=== PATIENT | male | born 1960 | race Caucasian/White ===

== ENCOUNTER → 2023-05-16 13:15 | Outpatient (CLI) | payer MEDICARE, SELFPAY ==
--- NOTE | ~2023-05-16 | MR_ITS ---
MRI of the right shoulder Technique: Axial proton-density fat-sat images, coronal proton density fat-sat and T2 fat-sat images, and sagittal T1-weighted and T2 fat-sat images were acquired. Clinical History: Pain Findings: There is mild AC joint degenerative change. Coracoclavicular, coracoacromial, coracohumeral ligaments appear intact. There are complete, full-thickness tears involving the entirety of the supraspinatus and infraspinatu s tendons. Supraspinatus and is more retracted than the infraspinatus. Fluid-filled gap measures appr oximately 4.1 x 3.5 cm in extent. Subscapularis tendon is intact, with moderate tendinosis. Tendon of long head of the biceps is intact. There are degenerative tearing of the superior labrum with anterior and posterior extension. There is mild thickening and increased signal of the inferior glenohumeral ligament. There is a small glenohumeral joint effusion, with fluid passing through the rotator cuff defect into the subacromial /subdeltoid bursa. There is edematous change of the infraspinatus muscle belly, probable partial tear ing of the muscle near the myotendinous junction region. There is probable atrophy of the teres minor muscle belly. Impression: Complete, full-thickness tears of the supraspinatus and infraspinatus tendons, as detailed above. Degenerative SLAP tear of the labrum. Probable partial tearing of the infraspinatus muscle belly near the myotendinous junction region. Possible adhesive capsulitis. Fatty atrophy of the teres minor muscle belly. Reviewed, dictated and finalized at location . L [employer] Impression: Complete, full-thickness tears of the supraspinatus and infraspinatus tendons, as detailed above. Degenerative SLAP tear of the labrum. Probable partial tearing of the infraspinatus muscle belly near the myotendinou s junction region. Possible adhesive capsulitis. Fatty atrophy of the teres minor muscle belly.
== END ==
PROVIDERS: PCP Nurse Practitioner Family; Visit Provider Nurse Practitioner Family
DX: M75.121 Complete rotator cuff tear or rupture of right shoulder, not specified as traumatic (principal); S43.431A Superior glenoid labrum lesion of right shoulder, initial encounter; M62.511 Muscle wasting and atrophy, not elsewhere classified, right shoulder
CPT/HCPCS: 73221

== ENCOUNTER 2023-06-20 03:19 | Day surgery (SDC) | payer MEDICARE, SELFPAY ==
[2023-06-11 10:10] VITALS: BMI 35.1
--- NOTE | 2023-06-11 10:53 | PC.NURSE ---
Report to the Outpatient Waiting Room, entrance under the green pavilion located off [facility], at 0600 on 06-20-23. Planned Procedure Time: 0730. Time changes happen often and if your time is changed the preop area will call you the afternoon before. - You and your visitor will be asked to self-screen and do not enter if you have any COVID symptoms. - A mask is optional within the hospital at this time. Patients may have clear liquids (water, carbonated beverages, clear teas, apple juice) until 3 hours prior to surgery with a maximum of 20 ounces. 0430 - No food from midnight until time of surgery - Infants may have breast milk until 4 hours before surgery, formula 6 hours prior to surgery. - Children will be allowed to drink immediately following surgery. If applicable, please bring a bottle or sippy cup to assist with drinking. Juice, water, soda, and popsicles are readily available. For infants on formula, please bring formula the day of surgery. Pacifiers are allowed. Take the following medications with a SIP of water the morning of surgery: None DO NOT STOP ANY OF YOUR OTHER PRESCRIPTION MEDICATIONS PRIOR TO SURGERY ?EXCEPT THE FOLLOWING Medications to discontinue per physician: aspirin Date to take last dose: Per Dr. Calixto Please no make-up, nail surinamese, hairspray, perfume, deodorant, or body powder the day of surgery. No jewelry (including any body piercings) or valuables the day of surgery, leave them at home. Please take a shower or bath the night before, or the morning of, surgery with an antibacterial soap. Wear comfortable, loose fitting clothing. Children are encouraged to wear pajamas. - Jewelry must be removed prior to entering the operating room. Rings and piercings that are not removed may be cut off. - The hospital will not accept responsibility for valuables. - Please leave all valuables, including medications, at home the day of surgery. If you are going home after surgery, a licensed driver/refuse collector must drive you home. - NO public transportation without another adult if you receive anesthesia. - We recommend that an adult stay with you for 24 hours following discharge. - We also recommend that you do not drive, make important decision, drink alcoholic beverages, or take any drugs that were not prescribed by your health care provider for at least 24 hours after your discharge time. For Pediatric surgeries, we recommend two adults accompany the child home. Follow any additional instructions given to you from your surgeon. If you or anyone in your household have experienced Covid symptoms in the past week, please notify your surgeon or the nurse liaison at the phone number below for possible testing. Telephone instructions given to Rodo Oliveira and asked if any additional questions and then verbalized understanding. Patient advised to call surgeon office or pre surgery nurse liaison [phone] if any additional questions.
--- NOTE | 2023-06-19 13:19 | WPDANESEPPF ---
Anes - Initial Pre Proc Eval Procedure: Operation Date: 06/20/23 07:30 Proposed Procedures p Excisional Biopsy of Upper Back Times Three - Brigette Calixto MD Date/Time: 06/19/23 13:19 Surgeon: Brigette Calixto MD Pre Op Diagnosis: Sebaceous Cyst Upper Back x3 Patient Data Age: 62 Gender: M Height: 1.78 m Weight: 111.13 kg Allergies Allergy/AdvReac Type Severity Reaction Status Date / Time latex Allergy Mild Rash Verified 06/11/23 10:06 peroxide Allergy Mild Swelling Uncoded 06/11/23 10:06 Home Medications Medication Instructions Recorded Confirmed Type aspirin 81 mg tablet,delayed 81 mg PO DAILY 05/28/23 06/11/23 History release dapagliflozin propanediol 10 mg 10 mg PO DAILY 05/28/23 06/11/23 History tablet (Farxiga) insulin degludec 100 30 unit subcut DAILY 05/28/23 06/11/23 History unit-liraglutide 3.6 mg/mL(3 mL) subcutaneous pen (Xultophy 100/3.6) Patient hx anesthesia problems: none Family hx anesthesia problems: none Results Review: All pre-operative results and documents have been reviewed as part of the pre-operative evaluation. [facility] Past Medical History Medical History (Updated 06/19/23 @ 13:19 by Jamal Ramires DO) Diabetes type 2, controlled GERD (gastroesophageal reflux disease) History of heart attack Right rotator cuff tear Right shoulder pain Rotator cuff tendonitis Surgical History Surgical History History of appendectomy History of spinal fusion Family History Family History Unknown Heart disease Diabetes mellitus High cholesterol Arthritis Social History Social History Smoking packs per day: 0.5 Smoking cigarettes per day: 10.0 Years smoked: 2 Smoking pack-years: 1.00 Smoking status: Former smoker Tobacco type: cigarettes Second hand tobacco smoke exposure: No Additional smoking assessment comments: smoked as teenager Alcohol intake: never Substance use: never Substance use type: does not use Living arrangements: with family Spiritual care concerns: No Anes - Eval Final PreProcedure Day of Procedure 06/19/23 13:19 Patient weight: obese Heart: regular rate and rhythm Lungs: clear to auscultation Airway: Mallampati scale class II Neurological: alert and oriented Last oral intake: >/= 8 hours ASA classification: III Emergent: no Anesthetic plan: proceed Anesthesia type and monitoring: general GIVS and standard monitoring Results Review: All pre-operative results and documents have been reviewed as part of the pre-operative evaluation. Informed Consent: The patient's anesthetic plan and its attendant risks and benefits were discussed with the patient/family/POA. Questions were solicited and answers provided to the satisfaction of the patient/family/POA.
[2023-06-20 06:43] LABS: Glucose Point of Care 167 mg/dl (65-105)
[2023-06-20 07:00] VITALS: BP 162/91; PULSE 81; RESP 14; TEMP 36.4; O2SAT 99
[2023-06-20] MEDS: LACTATED RINGERS 1,000 ML 30 ML IV CONT (07:00)
--- NOTE | 2023-06-20 07:30 | WPDHPUPDATE1 ---
History and Physical Update Update Date/Time: 06/20/23 07:30 History and Physical has been reviewed, including an updated exam of the patient. There are NO changes in the patient's condition. Risks, benefits, and alternatives have been discussed and questions answered. Patient agrees to proceed with procedure.
[2023-06-20] MEDS: ceFAZolin 2 GM/D5W 50 ML 2 GM/50 ML BAG IVPB (07:38)
[2023-06-20] MEDS: KETOROLAC 15 MG/ML VIAL (*BKC) IV PUSH (07:58)
[2023-06-20] MEDS: BUPIVACAINE/EPINEPHRINE 0.5% 30 ML VIAL INFILTRATE (07:58)
--- NOTE | 2023-06-20 08:26 | W.PM.PROC2 ---
Procedure Note - Detailed Date of Procedure 06/20/23 Pre-op Diagnosis upper back mass x 2, upper mid back and right upper back Post-op Diagnosis Same Procedure Performed excisional biopsy upper back mass x2 Surgeon Brigette Calixto MD Anesthesia MAC and Local Indications 62-year-old male presenting to the office with upper back 2. Patient reports areas are growing in size and tender to palpation. Findings Upper back mass x2, mid upper back measuring 2.5 x 1.5 cm, right upper back measuring 2.5 x 1 cm Description of Procedure The patient was taken to the operating room placed in the lateral position. After adequate induction of MAC anesthesia, the patient was prepped and draped in the normal sterile. A time-out was done to verify the patient's identity, as well as the procedure being performed. I began by localizing the areas in and around these masses in the upper back. Beginning with the midback mass, I made an elliptical incision to encompass the overlying dermis of the mass. This incision was carried down through the dermis and into the subcutaneous tissue. A hard cystic mass was encountered within the subcutaneous tissue. This area was excised in full again encompassing the overlying dermis. The excision measured 2.5 x 1.5 cm. This was sent for pathology. I then gained hemostasis with the Bovie cautery. The subcutaneous tissue was closed with 3-0 Vicryl suture. The skin was closed with 4-0 Monocryl subcuticular suture. I then excised the mass in the right upper back. Again an elliptical incision was made to encompass the area of the mass. This was carried to the subcutaneous tissue where the mass was located. Again a full excision was done. The excision measured 2.5 x 1 cm. This will also be sent to pathology for further review. Hemostasis was gained with the Bovie cautery. The subcutaneous tissue was closed with 3-0 Vicryl suture. The skin was closed with 4-0 Monocryl subcuticular suture. Dermabond was placed on both excision sites. The patient tolerated the procedure well and was alert and awake in the operating room postoperatively. He will be sent to the recovery room in stable condition. Estimated Blood Loss 5 Drains No Packing No Pathology Yes Complications No immediate complications Condition Stable Disposition PACU [facility] Billing Surgery - Charge Forward: Surgery Billing
[2023-06-20 08:32] VITALS: BP 117/71; PULSE 72; RESP 16; O2SAT 97
[2023-06-20 09:00] VITALS: BP 126/80; PULSE 62; RESP 16
== END 2023-06-20 09:20 | disposition home or self-care (01) ==
PROVIDERS: PCP Internal Medicine; Visit Provider Surgery
PROC: (CPT 21931; principal; 2023-06-20 07:30)
DX: D17.1 Benign lipomatous neoplasm of skin and subcutaneous tissue of trunk (principal); L72.0 Epidermal cyst; E11.9 Type 2 diabetes mellitus without complications; I25.2 Old myocardial infarction; Z98.1 Arthrodesis status; Z87.891 Personal history of nicotine dependence; E66.9 Obesity, unspecified; Z68.36 Body mass index [BMI] 36.0-36.9, adult; Z79.4 Long term (current) use of insulin; Z79.84 Long term (current) use of oral hypoglycemic drugs; Z79.82 Long term (current) use of aspirin
CPT/HCPCS: 21931; 11403; 12031; 82948; 88304; J0690; J1100; J1885; J2250; J2405; J2704; J3010; J7120

== ENCOUNTER 2024-01-06 13:19 | Emergency (ER) | payer MEDICARE, SELFPAY ==
--- NOTE | ~2024-01-06 | XR_ITS ---
XR ankle LT min 3V Ordering provider: Demetra Salazar NP History: . achilles pain . Comparison: None. FINDINGS: BONES: No acute fracture or dislocation. Bony fragment seen near to the base of the fifth metatarsal bone most likely old fracture. Calcaneal spur. JOINT SPACES: The ankle mortise is normal. SOFT TISSUES: Soft tissue swelling over the lateral malleolus. Ossification of the insertion of the t endo Achilles. Calcifications also seen in the distal tendo Achilles. Soft tissue swelling also seen in the area. IMPRESSION: No definite acute osseous abnormality left ankle. Reviewed, dictated and finalized at location A.
[2024-01-06 13:30] VITALS: BP 151/80; PULSE 73; RESP 20; TEMP 36.7; O2SAT 98
--- NOTE | 2024-01-06 13:41 | ED.LOWEXIN ---
HPI - Extremity Injury (Lower) General Chief Complaint: Extremity Injury, Lower Stated Complaint: achilles tendon Time Seen by Provider: 01/06/24 13:41 Source: patient Mode of arrival: ambulatory Limitations: no limitations History of Present Illness HPI Narrative: 63-year-old male presents with complaint of pain and swelling to left ankle. Patient states he thinks he ruptured his Achilles tendon. Two weeks ago patient injured left ankle when dog chain became wrapped around it. Saw his primary care physician and was told ?partial Achilles tendon rupture . Did not have any imaging completed. Today patient was pushing a lawnmower up driveway he will and states left ankle gave out. Cannot bear weight on left lower extremity. Distal neurovascular intact. All systems reviewed and negative except as noted above. Related Data Home Medications Medication Instructions Recorded Confirmed aspirin 81 mg tablet,delayed 81 mg PO DAILY 05/28/23 01/06/24 release insulin degludec 100 30 unit subcut DAILY 05/28/23 01/06/24 unit-liraglutide 3.6 mg/mL(3 mL) subcutaneous pen (Xultophy 100/3.6) dapagliflozin propanediol 10 mg 10 mg PO DAILY 08/02/23 01/06/24 tablet (Farxiga) cephalexin 500 mg capsule See Rx Instructions .Route .COMPLEX 01/06/24 01/06/24 Allergies Allergy/AdvReac Type Severity Reaction Status Date / Time latex Allergy Mild Rash Verified 01/06/24 13:36 peroxide Allergy Mild Swelling Uncoded 01/06/24 13:36 Review of Systems Review of Systems: CONSTITUTIONAL: Denies fever, chills, or sweats. EYES: Denies visual changes, redness, or discharge. ENT: Denies rhinorrhea, congestion, sore throat, or otalgia. CARDIOVASCULAR: Denies chest pain, palpitations, or edema. RESPIRATORY: Denies cough or dyspnea. GASTROINTESTINAL: Denies abdominal pain, nausea, vomiting, or diarrhea. GENITOURINARY: Denies dysuria or hematuria. SKIN: Denies rash or itching. MUSCULOSKELETAL: Denies back pain, joint pain, or myalgia. Reports pain and swelling to left ankle. NEUROLOGIC: Denies headache, numbness, or weakness. PSYCHIATRIC: Denies anxiety or depression. All other systems reviewed are negative, except as documented in HPI. ON LICENSE OF [facility] Past Medical History Medical History Diabetes type 2, controlled GERD (gastroesophageal reflux disease) History of heart attack Right rotator cuff tear Right shoulder pain Rotator cuff tendonitis Surgical History Surgical History History of appendectomy History of spinal fusion Status post excisional biopsy upper back sebaceous cyst 06/20/23 Family History Family History Unknown Heart disease Diabetes mellitus High cholesterol Arthritis Social History Social History Smoking packs per day: 0.5 Smoking cigarettes per day: 10.0 Years smoked: 2 Smoking pack-years: 1.00 Smoking status: Former smoker Tobacco type: cigarettes Second hand tobacco smoke exposure: No Additional smoking assessment comments: smoked as teenager Alcohol intake: never Substance use: never Substance use type: does not use Living arrangements: with family Spiritual care concerns: No Comments At time of signature, agree with nursing past medical, surgical, social and family history. There is no relevant family history pertinent to the presenting complaint. Exam Narrative: GENERAL: This is a well-nourished, well-developed patient, in no apparent distress. HEAD: normocephalic, atraumatic. EYES: PERRL. Sclera clear/white. Vision is grossly intact. EARS: External ears normal NOSE: External nose normal NECK: Neck supple, non-tender without lymphadenopathy, masses or thyromegaly. CARDIOVASCULAR: Regular rate and rhythm without murmurs, gallops, or rubs. RESPIRATORY
== END 2024-01-06 14:30 | disposition home or self-care (01) ==
PROVIDERS: Emergency Provider Nurse Practitioner Family; PCP Internal Medicine
DX: S86.012A Strain of left Achilles tendon, initial encounter (principal); X50.0XXA Overexertion from strenuous movement or load, initial encounter; E11.9 Type 2 diabetes mellitus without complications; K21.9 Gastro-esophageal reflux disease without esophagitis; I25.2 Old myocardial infarction; Z79.82 Long term (current) use of aspirin
CPT/HCPCS: 73610; 99213; G0463

== ENCOUNTER 2024-01-09 11:04 | Outpatient (CLI) | payer MEDICARE, SELFPAY ==
--- NOTE | ~2024-01-09 | MR_ITS ---
MRI of the left ankle Clinical history: Achilles tendon rupture Technique: Coronal proton-density and proton-density fat-sat images, axial proton-density and proton- density fat-sat images, and sagittal proton-density and proton-density fat-sat images were acquired. Findings: Syndesmotic ligaments are intact. Anterior and posterior talofibular ligament, and calcaneo fibular ligament are intact. Deltoid ligament is intact. There is severe tendinosis of the distal tibialis posterior tendon, which is otherwise intact. Remain ing flexor tendons, anterior extensor tendons, and peroneal tendons are intact. There is complete rup ture of the distal Achilles tendon from its distal insertion, with retraction by approximately 5 cm. Retracted tendon images somewhat frayed and hyperintense. There is no osteochondral lesion of the talar dome. There is extensive amorphous marrow edema in the posterior calcaneus. Remaining marrow signals are unremarkable. Joint spaces are well-preserved. No s ignificant joint effusion clearly evident. Plantar fascia is intact with small plantar calcaneal spur. There is marked, diffuse subcutaneous sof t tissue edema throughout the ankle region. Impression: Complete rupture of the distal Achilles tendon from its insertion, with 5 cm retraction, as detailed above. Severe tendinosis of the distal tibialis posterior tendon. Marked, diffuse subcutaneous soft tissue edema. Reviewed, dictated and finalized at location . Impression: Complete rupture of the distal Achilles tendon from its insertion, with 5 cm re traction, as detailed above. Severe tendinosis of the distal tibialis posterior tendon. Marked, diffuse subcutaneous soft tissue edema.
== END 2024-01-09 11:05 ==
LOC: GOSHIMG 11:04
PROVIDERS: PCP Internal Medicine; Visit Provider Orthopaedic Surgery
DX: S86.012A Strain of left Achilles tendon, initial encounter (principal); X58.XXXA Exposure to other specified factors, initial encounter
CPT/HCPCS: 73721

== ENCOUNTER 2024-01-09 13:12 | Outpatient (CLI) | payer MEDICARE, SELFPAY ==
--- NOTE | 2024-01-09 13:24 | ECG_ITS ---
Test Date: 2024-01-09 13:44:02 Measurements Intervals [place] Rate: 76 P: 66 TN: 172 QRS: 41 QRSD: 85 T: 28 QT: 373 QTc: 420 Interpretive Statements SINUS RHYTHM NONSPECIFIC T-WAVE ABNORMALITY BORDERLINE ECG No previous ECG available for comparison Electronically Signed On 01-10-2024 13:33:25 CDT by Valentín Owen M.D.
[2024-01-09 14:08] LABS: Anion Gap 8 mmol/L (4-12); Blood Urea Nitrogen 12 mg/dL (9-20); Calcium 9.1 mg/dL (8.4-10.2); Carbon Dioxide 27 mmol/L (22-30); Chloride 97 mmol/L (98-107); Estimated Glomerular Filt Rate > 60; Glucose 347 mg/dL (65-110); Potassium 4.2 mmol/L (3.4-5.0); Sodium 132 mmol/L (137-145)
== END 2024-01-09 13:13 | disposition home or self-care (01) ==
LOC: ANHSURGERY 13:16
PROVIDERS: Anesthesiology; PCP Internal Medicine; Visit Provider Orthopaedic Surgery
DX: E11.9 Type 2 diabetes mellitus without complications (principal)
CPT/HCPCS: 36415; 80048; 93005

== ENCOUNTER 2024-01-13 02:27 | Day surgery (SDC) | payer MEDICARE, SELFPAY ==
--- NOTE | 2024-01-09 09:52 | PM.IMHP ---
H&P: HPI History of Present Illness Date/Time: 01/09/24 09:52 Chief Complaint: Patient has an Achilles tendon rupture left. He is on a push off with his left foot and it cannot walk at this time. Review of Systems Musculoskeletal: Musculoskeletal: Reports arthralgias and Reports joint swelling [facility] Past Medical History Medical History Diabetes type 2, controlled GERD (gastroesophageal reflux disease) History of heart attack Right rotator cuff tear Right shoulder pain Rotator cuff tendonitis Surgical History Surgical History History of appendectomy History of spinal fusion Status post excisional biopsy upper back sebaceous cyst 06/20/23 Family History Family History (Updated 01/09/24 @ 08:18 by TENISHA William) Father No problems noted. Mother , UTI Heart disease Sibling Carcinoma of colon Sibling Diabetes mellitus Heart disease Social History Social History (Updated 01/09/24 @ 08:18 by TENISHA William) Smoking packs per day: 0.5 Smoking cigarettes per day: 10.0 Years smoked: 2 Smoking pack-years: 1.00 Smoking status: Light tobacco smoker Tobacco type: cigarettes Second hand tobacco smoke exposure: No Additional smoking assessment comments: smoked as teenager Alcohol intake: never Substance use: never Substance use type: does not use Do You Feel Safe in your Home?: Yes Lack of Transportation: No Lack of Food: Never True Current Housing: I Have Housing Concerned About Future Housing: Decline to Answer Difficulty Paying Gas/Electric Bills: Decline to Answer Difficulty Paying for Meds: Decline to Answer Currently Unemployed: Decline to Answer Education: Decline to Answer Difficulty w/ Childcare or Family Care: Decline to Answer Living arrangements: with family Occupation/Education: retired 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 [employer] Gender identity (if verbalized by the patient): Male Spiritual care concerns: No Meds Home Medications and Allergies Home Medications Medication Instructions Recorded Confirmed Type aspirin 81 mg tablet,delayed 81 mg PO DAILY 05/28/23 01/09/24 History release insulin degludec 100 30 unit subcut DAILY 05/28/23 01/09/24 History unit-liraglutide 3.6 mg/mL(3 mL) subcutaneous pen (Xultophy 100/3.6) dapagliflozin propanediol 10 mg 10 mg PO DAILY 08/02/23 01/09/24 History tablet (Farxiga) cephalexin 500 mg capsule See Rx Instructions .Route .COMPLEX 01/06/24 01/09/24 History Allergies Allergy/AdvReac Type Severity Reaction Status Date / Time latex Allergy Mild Rash Verified 01/09/24 08:15 peroxide Allergy Mild Swelling Uncoded 01/09/24 08:15 Exam Narrative: Patient has a possible defect in the Achilles area and can not push off with his left foot. He has diabetes but he does have air down was ankle not so much on his foot. He can wiggle his toes neurologically he is grossly intact. Eyes: General: appearance normal, both eyes and all related structures Neck: Neck: supple Resp: Effort & Inspection: normal respiratory effort Cardio: Rate: regular rate Rhythm: regular rhythm Assessment and Plan Assessment and plan (1) Complete rupture of left Achilles tendon: Code(s): S86.012A - Strain of left Achilles tendon, initial encounter Status: Acute Assessment and Plan: Patient has rupture of Achilles tendon left. He is unable to bear weight on his leg and walk. Neurologically he is grossly intact. I discussed treatment option with the patient risks benefits limitations and alternatives. Both operative and non operative treatment. A like to proceed with surgical intervention he is well aware of fact with diabetes but cement higher risk for wound problems as does operative treatment.
[2024-01-09 10:48] VITALS: BMI 35.1
--- NOTE | 2024-01-09 10:49 | PC.NURSE ---
Report to the Outpatient Waiting Room, entrance under the green pavilion located off [facility], at time _1100_ on date _[id number]_. Planned Procedure Time: _1pm_. Time changes happen often and if your time is changed the preop area will call you the afternoon before. - You and your visitor will be asked to self-screen and do not enter if you have any COVID symptoms. - A mask is optional within the hospital at this time. Patients may have clear liquids (water, carbonated beverages, clear teas, apple juice) until 3 hours prior to surgery with a maximum of 20 ounces. - No food from midnight until time of surgery Take the following medications with a SIP of water the morning of surgery: ____None DO NOT STOP ANY OF YOUR OTHER PRESCRIPTION MEDICATIONS PRIOR TO SURGERY ?EXCEPT THE FOLLOWING Medications to discontinue per physician None Date to take last dose Please no make-up, nail kazakh, hairspray, perfume, deodorant, or body powder the day of surgery. No jewelry (including any body piercings) or valuables the day of surgery, leave them at home. Please take a shower or bath the night before, or the morning of, surgery with an antibacterial soap. Wear comfortable, loose fitting clothing. - Jewelry must be removed prior to entering the operating room. Rings and piercings that are not removed may be cut off. - The hospital will not accept responsibility for valuables. - Please leave all valuables, including medications, at home the day of surgery. If you are going home after surgery, a licensed otr van cdl truck driver must drive you home. - NO public transportation without another adult if you receive anesthesia. - We recommend that an adult stay with you for 24 hours following discharge. - We also recommend that you do not drive, make important decision, drink alcoholic beverages, or take any drugs that were not prescribed by your health care provider for at least 24 hours after your discharge time. Follow any additional instructions given to you from your surgeon. If you or anyone in your household have experienced Covid symptoms in the past week, please notify your surgeon or the nurse liaison at the phone number below for possible testing. Telephone instructions given to _Rodo and Stefanie___and asked if any additional questions and then verbalized understanding. Patient advised to call surgeon office or pre surgery nurse liaison [phone] if any additional questions.
[2024-01-13] VITALS (7 sets, daily range): BP systolic 142–159; BP diastolic 81–92; PULSE 67–84; RESP 12–14; TEMP 36.1–36.2; O2SAT 95–99
--- NOTE | 2024-01-13 11:11 | WPDHPUPDATE1 ---
History and Physical Update Update Date/Time: 01/13/24 11:11 History and Physical has been reviewed, including an updated exam of the patient. There are NO changes in the patient's condition. Risks, benefits, and alternatives have been discussed and questions answered. Patient agrees to proceed with procedure. Patient understands the increased risks with Diabetes and rupture off of the bone.
[2024-01-13 11:45] LABS: Glucose Point of Care 187 mg/dl (65-105)
[2024-01-13] MEDS: KETOROLAC 15 MG/ML VIAL (*BKC) IV PUSH (11:45)
[2024-01-13] MEDS: ACETAMINOPHEN 500 MG TABLET 1000 MG PO (11:45)
[2024-01-13] MEDS: LACTATED RINGERS 1,000 ML 30 ML IV CONT ×2 (11:45→14:11)
--- NOTE | 2024-01-13 12:25 | WPDANESEPPF ---
Anes - Initial Pre Proc Eval Procedure: Operation Date: 01/13/24 13:00 Proposed Procedures p Left Achilles Tendon Repair - Vin Meehan MD Date/Time: 01/13/24 12:25 Surgeon: Vin Meehan MD Pre Op Diagnosis: left achilles tendon rupture Patient Data Age: 63 Gender: M Height: 1.77 m Weight: 109.6 kg Last Vital Signs Temp 97.2 F L 01/13/24 11:45 Pulse 84 01/13/24 11:45 Resp 14 01/13/24 11:45 BP 157/92 H 01/13/24 11:45 Pulse Ox 97 01/13/24 11:45 O2 Del Method Room Air 01/13/24 11:45 Allergies Allergy/AdvReac Type Severity Reaction Status Date / Time hydrogen peroxide Allergy Mild Swelling Verified 01/13/24 12:05 latex Allergy Mild Rash Verified 01/13/24 12:05 Home Medications Medication Instructions Recorded Confirmed Type aspirin 81 mg tablet,delayed 81 mg PO DAILY 05/28/23 01/13/24 History release insulin degludec 100 30 unit subcut DAILY 05/28/23 01/09/24 History unit-liraglutide 3.6 mg/mL(3 mL) subcutaneous pen (Xultophy 100/3.6) dapagliflozin propanediol 10 mg 10 mg PO DAILY 08/02/23 01/13/24 History tablet (Farxiga) cephalexin 500 mg capsule See Rx Instructions .Route .COMPLEX 01/06/24 01/13/24 History Laboratory Tests 01/13/24 11:41 POC Capillary Glucose 187 H mg/dl (65-105) Patient hx anesthesia problems: other (Remote hx of being slow to awaken. ) Family hx anesthesia problems: none Results Review: All pre-operative results and documents have been reviewed as part of the pre-operative evaluation. [facility] Past Medical History Medical History Diabetes type 2, controlled GERD (gastroesophageal reflux disease) History of heart attack Right rotator cuff tear Right shoulder pain Rotator cuff tendonitis Surgical History Surgical History History of appendectomy History of spinal fusion Status post excisional biopsy upper back sebaceous cyst 1/18/24 Family History Family History Father No problems noted. Mother , UTI Heart disease Sibling Carcinoma of colon Sibling Diabetes mellitus Heart disease Social History Social History Smoking packs per day: 0.5 Smoking cigarettes per day: 10.0 Years smoked: 2 Smoking pack-years: 1.00 Smoking status: Never smoker Tobacco type: cigarettes Second hand tobacco smoke exposure: No Additional smoking assessment comments: smoked as teenager Alcohol intake: never Substance use: never Substance use type: does not use Do You Feel Safe in your Home?: Yes Lack of Transportation: No Lack of Food: Never True Current Housing: I Have Housing Concerned About Future Housing: Decline to Answer Difficulty Paying Gas/Electric Bills: Decline to Answer Difficulty Paying for Meds: Decline to Answer Currently Unemployed: Decline to Answer Education: Decline to Answer Difficulty w/ Childcare or Family Care: Decline to Answer Living arrangements: with family Occupation/Education: retired 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 ) Neurological: alert and oriented Last oral intake: >/= 8 hours ASA classification: III Emergent: no Anesthetic plan: proceed Anesthesia type and monitoring: general ETT and standard monitoring Results Review: All pre-operative results and documents have been reviewed as part of the pre-operative evaluation. glynn VILLA
[2024-01-13] MEDS: ceFAZolin 2 GM/D5W 50 ML 2 GM/50 ML BAG IVPB (12:39)
--- NOTE | 2024-01-13 13:22 | W.PM.PROC2 ---
Procedure Note - Detailed Date of Procedure 01/13/24 Pre-op Diagnosis LEFT achilles tendon rupture Post-op Diagnosis Same Procedure Performed Repair Left Achilles Tendon Surgeon Vin Meehan MD Video Camera Operator Matilde Rodriguez Anesthesia General Findings Rupture Tendon off of calcaneus Description of Procedure Patient brought to operating room #8. A general anesthetic was administered. He was placed prone on the table and sterilely prepped and draped in usual manner. Longitudinal incision made over the Achilles tendon. Dissection carried down. The rupture easily found. The rupture was minimally mobilized and brought down to the Calcaneus with an Allis clamp. Then a #5 Ethibond suture was put through the calcaneus. Then and with a [id number] pattern I tied the tendon rupture back down. This was augmented with multiple #2 Ethibond sutures to help smooth and even out the tendon rupture. At this point the tendon was intact even with the dorsiflexing his foot. The wound was then closed with 2-0 Vicryl and thien and placed in cam walker boot. Estimated Blood Loss 20 Complications No immediate complications Condition Stable Disposition PACU [facility] Billing Surgery - Charge Forward: Surgery Billing ([id number] Achilles Repair)
[2024-01-13 14:07] LABS: Glucose Point of Care 198 mg/dl (65-105)
== END 2024-01-13 15:40 | disposition home or self-care (01) ==
PROVIDERS: PCP Internal Medicine; Visit Provider Orthopaedic Surgery
PROC: (CPT 27650; principal; 2024-01-13 13:00)
DX: S86.012A Strain of left Achilles tendon, initial encounter (principal); E11.9 Type 2 diabetes mellitus without complications; K21.9 Gastro-esophageal reflux disease without esophagitis; I25.2 Old myocardial infarction; E66.9 Obesity, unspecified; Z68.35 Body mass index [BMI] 35.0-35.9, adult; Z79.82 Long term (current) use of aspirin; Z79.4 Long term (current) use of insulin; Z98.890 Other specified postprocedural states; Z98.1 Arthrodesis status; Z87.891 Personal history of nicotine dependence; Z80.0 Family history of malignant neoplasm of digestive organs; Z82.49 Family history of ischemic heart disease and other diseases of the circulatory system; X58.XXXA Exposure to other specified factors, initial encounter
CPT/HCPCS: 27650; 82948; A9270; J0330; J0690; J1100; J1170; J1885; J2250; J2405; J2704; J3010; J7120